=== PATIENT | male | born 1960 | race Asian ===

== ENCOUNTER 2016-08-18 10:52 | Emergency (ER) | payer OTHER ==
[~2016-08-18] VITALS: Ht 154.9 cm; Wt 65.8 kg
[~2016-08-18 10:52] MED LIST: ASA LO-DOSE81 MG OR; CYCL10TA35 PO; KETO10TA34 PO; METO25TA2; METO25TA4 PO; MILLIPRED DP5 MG OR; NEXIUM40 M1 PO; PEPCID20 MG OR; RYBIX ODT50 MG OR; SIMV20TA2 PO
[2016-08-18 11:51] LABS: PLATELET COUNT 203 K/uL (142-355)
[2016-08-18 12:05] LABS: POTASSIUM 4.2 mmol/L (3.6-5.2); SODIUM 138 mmol/L (136-145)
[2016-08-18 12:52] VITALS: BP 140/89; TEMP 98
== END 2016-08-18 12:52 | disposition home or self-care (01) ==
LOC: ED 10:52
DX: J20.9 Acute bronchitis, unspecified (principal)
CPT/HCPCS: 36415; 80053; 85027; 87081; 87804; 87880; 99283

== ENCOUNTER 2016-12-20 03:21 | Outpatient (CLI) | payer OTHER | END 2016-12-20 03:25 | disposition short-term general hospital (02) | LOC: AMB 03:21 | DX: M54.5 Low back pain (principal); M25.551 Pain in right hip | CPT/HCPCS: A0425; A0429 ==

== ENCOUNTER 2016-12-20 03:28 | Emergency (ER) | payer OTHER ==
[~2016-12-20] VITALS: Ht 154.9 cm; Wt 63.5 kg
[2016-12-20 05:08] VITALS: BP 139/77; TEMP 98.1
== END 2016-12-20 05:08 | disposition home or self-care (01) ==
LOC: ED 03:28
DX: M54.5 Low back pain (principal); G89.29 Other chronic pain
CPT/HCPCS: 96372; 99283; J1885

== ENCOUNTER 2017-05-26 10:05 | Emergency (ER) | payer OTHER ==
[~2017-05-26] VITALS: Ht 157.5 cm; Wt 59.0 kg
[2017-05-26 10:50] VITALS: TEMP 99.3
[2017-05-26] MEDS ORDERED: COATED ASPIRIN325 MG PO (11:18)
[2017-05-26] MEDS ORDERED: MOBIC7.5 M1 PO (11:22)
[2017-05-26] MEDS ORDERED: TRAMADOL HCL E100 M1 PO (11:24)
[2017-05-26 11:45] VITALS: BP 141/84
[2017-05-26 11:56] LABS: PLATELET COUNT 245 K/uL (142-355)
[2017-05-26 11:58] LABS: SODIUM 130 mmol/L (136-145)
== END 2017-05-26 12:50 | disposition home or self-care (01) ==
LOC: ED 10:05
PROVIDERS: Family Medicine
DX: J06.9 Acute upper respiratory infection, unspecified (principal); E87.1 Hypo-osmolality and hyponatremia
CPT/HCPCS: 80053; 85027; 87804; 99283; J2550

== ENCOUNTER 2017-10-25 10:19 | Outpatient (CLI) | payer OTHER ==
[~2017-10-25 10:19] MED LIST changes: +COATED ASPIRIN325 MG PO; +MOBIC7.5 M1 PO; +TRAMADOL HCL E100 M1 PO
[2017-10-25 10:51] LABS: PLATELET COUNT 297 K/uL (142-355)
[2017-10-25 12:26] LABS: POTASSIUM 4.5 mmol/L (3.6-5.2)
== END 2017-10-25 21:21 | disposition home or self-care (01) ==
LOC: LABW 10:19
PROVIDERS: Physician Assistant
DX: I10 Essential (primary) hypertension (principal); I25.10 Atherosclerotic heart disease of native coronary artery without angina pectoris; E78.4 Other hyperlipidemia
CPT/HCPCS: 36415; 80053; 80061; 83735; 84153; 84439; 84443; 85027

== ENCOUNTER 2017-11-25 11:31 | Outpatient (CLI) | payer OTHER | END 2017-11-25 20:08 | disposition home or self-care (01) | LOC: RAD 11:31 | DX: M54.2 Cervicalgia (principal) ==

== ENCOUNTER 2017-12-27 10:12 | Outpatient (CLI) | payer OTHER | END 2017-12-27 23:03 | disposition home or self-care (01) | LOC: US 10:12 | DX: M94.0 Chondrocostal junction syndrome [Tietze] (principal) ==

== ENCOUNTER 2019-05-09 10:19 | Outpatient (CLI) | payer OTHER ==
[2019-05-09 11:06] LABS: PLATELET COUNT 271 K/uL (142-355); POTASSIUM 4.2 mmol/L (3.6-5.2)
== END 2019-05-09 19:37 | disposition home or self-care (01) ==
LOC: LAB 10:19
PROVIDERS: Physician Assistant
DX: I10 Essential (primary) hypertension (principal); M54.5 Low back pain; E78.49 Other hyperlipidemia; I25.10 Atherosclerotic heart disease of native coronary artery without angina pectoris
CPT/HCPCS: 80053; 84443; 85027

== ENCOUNTER 2020-01-25 07:30 | Emergency (ER) | payer OTHER ==
[~2020-01-25] VITALS: Ht 152.4 cm; Wt 62.7 kg
[2020-01-25 07:40] VITALS: BP 145/93; TEMP 98
== END 2020-01-25 08:35 | disposition home or self-care (01) ==
LOC: ED 07:30
DX: S80.861A Insect bite (nonvenomous), right lower leg, initial encounter (principal); W57.XXXA Bitten or stung by nonvenomous insect and other nonvenomous arthropods, initial encounter; Y92.89 Other specified places as the place of occurrence of the external cause
CPT/HCPCS: 99282

== ENCOUNTER 2020-12-06 13:13 | Emergency (ER) | payer OTHER | END 2020-12-06 13:57 | disposition home or self-care (01) | LOC: ED 13:13 | DX: S61.212A Laceration without foreign body of right middle finger without damage to nail, initial encounter (principal); W26.0XXA Contact with knife, initial encounter; Y92.488 Other paved roadways as the place of occurrence of the external cause | CPT/HCPCS: 90471; 90715; 99282 ==